=== PATIENT | male | born 1970 ===

== ENCOUNTER 2017-02-09 05:03 | Emergency (ER) | payer BC ==
[2017-02-09 05:11] VITALS: BP 140/84
[2017-02-09] MEDS ORDERED: Indomethacin CAP* 25 MG CAP PO ONE (05:21)
[2017-02-09] MEDS ORDERED: oxyCODONE/Acetamin 5/325 MG* TAB PO ONE (05:21)
--- NOTE | 2017-02-09 05:49 | ED ---
lashell Messer Timothy, scribed for Benny Carroll on 02/09/17 at 0520 . Lower Extremity - HPI Summary HPI Summary: Rodolfo Lynne is a 46 yo male presenting to [facility] with 8/10 LLE great toe pain and swelling for the past 2 days. Pt presents with a Hx of gout. His pain increases with movement or weight on the toe. He denies any trauma. His MHx includes gout. - History of Current Complaint Chief Complaint: EDExtremityLower Stated Complaint: LT FOOT PAIN Time Seen by Provider: 02/09/17 05:13 Hx Obtained From: Patient Mechanism Of Injury: Unknown Onset of Pain: Days Onset/Duration: Still Present Severity Initially: Moderate Severity Currently: Moderate Pain Intensity: 8 Pain Scale Used: 0-10 Numeric Timing: Constant Location: Is Discrete @ - LLE great toe Associated Signs And Symptoms: Positive: Swelling Aggravating Factor(s): Standing, Movement, Weight Bearing - Allergies/Home Medications Allergies/Adverse Reactions: Allergies Allergy/AdvReac Type Severity Reaction Status Date / Time No Known Allergies Allergy Verified 02/09/17 05:07 PMH/Surg Hx/FS Hx/Imm Hx Musculoskeletal History: Reports: Hx Gout Infectious Disease History: No Infectious Disease History: Denies: Traveled Outside the [place] in Last 30 Days - Family History Known Family History: Positive: Cardiac Disease Negative: Hypertension, Diabetes - Social History Alcohol Use: Occasionally Hx Substance Use: No Substance Use Type: Reports: None Hx Tobacco Use: No Smoking Status (MU): Never Smoked Tobacco Review of Systems Constitutional: Negative Eyes: Negative ENT: Negative Cardiovascular: Negative Respiratory: Negative Gastrointestinal: Negative Genitourinary: Negative Positive: Other - LLE great toe pain Skin: Negative Neurological: Negative Psychological: Normal All Other Systems Reviewed And Are Negative: Yes Physical Exam Triage Information Reviewed: Yes Vital Signs On Initial Exam: Initial Vitals Temp 97.6 F 02/09/17 05:08 Vital Signs Reviewed: Yes Appearance: Positive: Well-Appearing, No Pain Distress, Well-Nourished Skin: Positive: Warm, Skin Color Reflects Adequate Perfusion, Dry Head/Face: Positive: Normal Head/Face Inspection Eyes: Positive: EOMI, DEBORA ENT: Positive: Normal ENT inspection, Hearing grossly normal. Negative: Muffled /hoarse voice Neck: Positive: Supple, Nontender Respiratory/Lung Sounds: Positive: Clear to Auscultation, Breath Sounds Present Cardiovascular: Positive: RRR, Pulses are Symmetrical in both Upper and Lower Extremities Abdomen Description: Positive: Nontender, Soft Bowel Sounds: Positive: Present Musculoskeletal: Positive: Other - tenderness at left great metatarsal phalangeal joint, restricted ROM. Neurological: Positive: Normal, Sensory/Motor Intact, Alert, Oriented to Person Place, Time Psychiatric: Positive: Normal, Affect/Mood Appropriate Diagnostics - Vital Signs Vital Signs Temp Pulse Resp BP Pulse Ox 02/09/17 05:09 97.6 F 74 16 140/84 98 02/09/17 05:08 97.6 F - Laboratory Lab Statement: Any lab studies that have been ordered have been reviewed, and results considered in the medical decision making process. Lower Extremity Course/Dx - Course Assessment/Plan: Rodolfo Lynne is a 46 yomal presenting to [facility] with 8/10 pain in his LLE great toe for the past 2 days, with a Hx of gout. Pt medication list reviewed this visit. Pt was offered X-Ray services, which he declines. Pt declines lab services as well. After clinical examination he will be discharged home with gout with appropriate instructions and folllow up. - Diagnoses Differential Diagnosis/HQI/PQRI: Positive: Gout Provider Diagnoses: Gout Discharge - Discharge Plan Condition: Stable Disposition: HOME Prescriptions: Indomethacin CAP* [Indocin CAP*] 50 mg PO TID PRN #21 cap MDD 3 PRN Reason: Pain Oxycodone/ASA 5/325 (NF) [Percodan 5/325 (NF)] 1 tab PO TID #20 tab MDD 3 Patient Education Materials: Gout (ED) Referrals: Keila Hollis [Primary Care Provider] - 2 Days Additional Instructions: Please follow up with your primary care physician regarding your visit to the emergency department today. Return to the emergency department with any new or recurring symptoms. The documentation as recorded by the lashell mott Timothy accurately reflects the service I personally performed and the decisions made by , Benny Carroll.
== END 2017-02-09 05:30 | disposition home or self-care (01) ==
LOC: ED 05:03
DX: M10.9 Gout, unspecified (principal)
CPT/HCPCS: 99281

== ENCOUNTER 2019-01-03 15:00 | Emergency (ER) | payer BC ==
[2019-01-03 15:09] VITALS: BP 117/81
--- NOTE | 2019-01-03 15:27 | UC ---
Bite Injury/Animal HPI - HPI Summary HPI Summary: 48-year-old male comes in with a chief complaint of a tick bite to the left forearm. He found today is not sure how long its been in there he pulled out except for the head. No fevers or chills no rash. Feels well otherwise. - History of Current Complaint Chief Complaint: EANkin Stated Complaint: TICK Time Seen by Provider: 01/03/19 15:15 Pain Intensity: 2 - Allergies/Home Medications Allergies/Adverse Reactions: Allergies Allergy/AdvReac Type Severity Reaction Status Date / Time bee venom protein (honey bee) Allergy Anaphylatic Verified 01/03/19 15:08 Shock Home Medications: Home Medications Naproxen Sodium [Aleve] 1 tab PO ONCE PRN 01/03/19 [History Confirmed 01/03/19] PMH/Surg Hx/FS Hx/Imm Hx Previously Healthy: Yes - Surgical History Surgical History: Yes Surgery Procedure, Year, and Place: T&A - Family History Known Family History: Positive: Cardiac Disease Negative: Hypertension, Diabetes - Social History Alcohol Use: Occasionally Substance Use Type: None Smoking Status (MU): Never Smoked Tobacco Review of Systems All Other Systems Reviewed And Are Negative: Yes Constitutional: Positive: Negative Skin: Positive: Other - SEE HPI Eyes: Positive: Negative ENT: Positive: Negative Respiratory: Positive: Negative Cardiovascular: Positive: Negative Gastrointestinal: Positive: Negative Motor: Positive: Negative Neurovascular: Positive: Negative Musculoskeletal: Positive: Negative Neurological: Positive: Negative Psychological: Positive: Negative Is Patient Immunocompromised?: No Physical Exam Triage Information Reviewed: Yes Appearance: Well-Appearing, No Pain Distress, Well-Nourished Vital Signs: Initial Vital Signs Temp 98.0 F 01/03/19 15:05 Pulse 72 01/03/19 15:05 Resp 18 01/03/19 15:05 BP 117/81 01/03/19 15:05 Pulse Ox 99 01/03/19 15:05 Vital Signs Reviewed: Yes Eye Exam: Normal Eyes: Positive: Conjunctiva Clear Neck: Positive: Supple Respiratory: Positive: No respiratory distress Musculoskeletal Exam: Normal Musculoskeletal: Positive: Strength Intact, ROM Intact Neurological Exam: Normal Neurological: Positive: Alert, Muscle Tone Normal Psychological: Positive: Age Appropriate Behavior Skin: Positive: Other - LEFT FOREARM PUNCTATE 1MM BLACK FB IMBEDDING IN THE SKIN. NO BULLS EYE RASH. NO ERYTHEMA. Bite Injury Course/Dx - Differential Dx/Diagnosis Provider Diagnosis: Tick bite of forearm Discharge - Sign-Out/Discharge Documenting (check all that apply): Patient Departure All imaging exams completed and their final reports reviewed: No Studies - Discharge Plan Condition: Stable Disposition: HOME Prescriptions: DOXYcycline CAP(*) [DOXYcycline 100MG CAP(*)] 200 mg PO ONCE #2 cap Patient Education Materials: Tick Bite (ED) Referrals: Keila Hollis [Primary Care Provider] - Additional Instructions: FOLLOW UP WITH YOUR DOCTOR IF NOT COMPLETELY IMPROVED. GET RECHECKED SOONER IF YOUR CONDITION WORSENS; BULLS EYE RASH, SYMPTOMS OF LYME DISEASE OR ANY QUESTIONS OR CONCERNS. - Billing Disposition and Condition Condition: STABLE Disposition: Home
== END 2019-01-03 15:38 | disposition home or self-care (01) ==
LOC: UCEAST 15:00
DX: T63.481A Toxic effect of venom of other arthropod, accidental (unintentional), initial encounter (principal); Y92.9 Unspecified place or not applicable
CPT/HCPCS: 99212; G0463